=== PATIENT | male | born 1985 | race Caucasian/White ===

== ENCOUNTER → 2024-11-17 | Outpatient (CLI) | payer OTHER, SELFPAY ==
--- NOTE | 2024-11-17 16:41 | RAD_ITS ---
PROCEDURE: SHOULDER MIN 2 VIEWS 11/17/2024 REASON FOR EXAM: LEFT SHOULDER PAIN TECHNIQUE: Four views of the left shoulder COMPARISON: None available FINDINGS: No fracture or dislocation. Suggestion of possible subcortical cyst formation of the humeral head possible rotator cuff tendinopathy. The joint spaces appear within limits. RAD/Shoulder min 2 Views IMPRESSION: No fracture or dislocation. Suggestion of possible subcortical cyst formation of the humeral head possible rotator cuff tendinopathy. Reading Location: [id number]
--- NOTE | 2024-11-17 16:41 | RAD_ITS ---
EXAM: Foot minimum three views CLINICAL HISTORY: Chronic pain COMPARISON: None available TECHNIQUE: Three views left foot FINDINGS: No fracture or dislocation. The joint spaces appear within limits. No osseous lesion identified. [id number] enthesophyte at the Achilles surface and small at the plantar surface of the calcaneus. RAD/Foot min 3 Views IMPRESSION: Enthesophyte formation at the calcaneus as above. Reading Location: [id number]
== END | disposition home or self-care (01) ==
LOC: MTRAD 16:40
PROVIDERS: PCP Family Medicine; Referring Provider Family Medicine; Visit Provider Family Medicine
DX: M25.512 Pain in left shoulder (principal)
CPT/HCPCS: 73030; 73630

== ENCOUNTER → 2024-11-18 | Outpatient (CLI) | payer OTHER, SELFPAY ==
[2024-11-18 17:56] LABS: Absolute Lymphocyte Count 1.82 X10^3/uL (0.83-4.51); Absolute Neutrophil Count 6.5 X10^3/uL (2.0-7.7); Basophil# 0.07 X10^3/uL; Basophil% 0.8 % (0-1); Eosinophil# 0.17 X10^3/uL; Eosinophils% 1.9 % (0-5); Hematocrit 43.3 % (40-54); Lymphocyte # 1.82 X10^3/ul (0.83-4.51); Mean Corp Hgb Conc 34.6 g/dL (32-36); Mean Corpuscular Hgb 29.5 pg (27.0-32.0); Mean Corpuscular Volume 85.2 fL (80-94); Mean Platelet Vol. 10.3 fl (6.2-12.0); Monocyte# 0.52 X10^3/uL; Monocyte% 5.7 % (0-10); NRBC Flagged by Analyzer 0 % (0-5); Neutrophil % 71.4 % (47-70); Platelet Count 261 K/mm3 (150-450); RBC Distribution Width CV 12.4 % (11.6-14.6); RBC Distribution Width SD 38.5 fl (35.1-43.9); Red Blood Count 5.08 M/mm3 (4.6-6.2); White Blood Count 9.1 K/mm3 (4.4-11.0)
[2024-11-18 19:32] LABS: Cholesterol 242 mg/dL (<=200); High Density Lipoprotein 46 mg/dL; Low Density Lipoprotein Calc. 169 mg/dL; Triglycerides 133 mg/dL; Very Low Density Lipoprotein 27 mg/dL (5-40); cholesterol:hdl ratio screen 5.22
[2024-11-18 19:43] LABS: ALB/GLOB Ratio 1.2 RATIO (0.9-2.4); AST(SGOT) 43 U/L (<=37); Alanine Aminotransfer ALT/SGPT 76 U/L (<=46); Albumin, Serum 4.4 g/dL (3.5-5.0); Anion Gap 15 (5-15); BUN 11 mg/dL (4-19); BUN/Creat Ratio 12.2 RATIO (10-20); Calcium,Total 9.6 mg/dL (7.6-11.0); Carbon Dioxide 20.1 mmol/L (21.0-32.0); Chloride 104 mmol/L (98-108); Creatinine, Serum 0.91 mg/dL (0.70-1.20); EST Glomerular Filtration Rate 109 (>60); Globulin 3.6 g/dL (2.2-4.2); Glucose 81 mg/dL (70-99); Potassium 3.8 mmol/L (3.3-5.1); Sodium Level 139 mmol/L (133-145); Total Bilirubin 1.34 mg/dL (0.00-1.30)
[2024-11-18 19:55] LABS: Alkaline Phosphatase 96 U/L (40-129)
== END | disposition home or self-care (01) ==
PROVIDERS: PCP Family Medicine; Referring Provider Family Medicine; Visit Provider Family Medicine
DX: R53.83 Other fatigue (principal); Z13.220 Encounter for screening for lipoid disorders; Z13.1 Encounter for screening for diabetes mellitus
CPT/HCPCS: 36415; 80053; 80061; 82306; 84443; 85025

== ENCOUNTER 2024-12-21 17:00 | Outpatient (RCR) | payer OTHER, SELFPAY ==
--- NOTE | 2024-12-03 18:36 | HP.PTEVAL_ITS ---
Patient's Visit Information Visit Information Visit Information: SUNDEEP MARIE is a 39 year old M referred to Physical Therapy by Dr. Darwin Knowles MD with a diagnosis of LEFT SHOULDER PAIN. Date of Evaluation: 12/03/24 Physical Therapist: Foster Wang PT, Cert MDT, OCS Visit Plan Frequency: 1x/Week Duration: 4 Weeks Plan: PT INTERVENTIONS POSTURAL EX'S ,RTC/SCAPULAR STRENGTHENING ,ROM ,AND MODALITIES FOR PAIN Subjective Subjective: This 39 y/o male presents to physical therapy with left shoulder pain. Patient has had left shoulder ~ 10 years with pain worse over time. Patient seen DR Knowles who referred by DR Wellington. Patient had x-rays possible subcortical cyst formation of the humeral head possible rotator cuff tendinopathy. No cortisone injection and no medication. Dr recommended MRI in January. Patient located global down posterior arm. Aggravating factors OH activities especially lifting something heavy ,moving to side. Pain affects job demands and housework. Alleviating tylenol. Patient pain affects sleeping. Patient has paresthesia/tingling at night. Patient pain affects QOL and job demands/housework tasks. Patient goals to decrease pain with job demands. SOCIAL: SINGLE VOCATION: [employer] Pain Left Shoulder: Pain Intensity (Out of 10): 7 Pain Intensity Range: 10 Objective Objective: POSTURE: mild forward posture NEURO: denies paresthesia/tingling except at night with hand PALPATION: anterior shoulder acromion AROM: shoulder flexion 140 degrees pain ,abduction 140 degrees in pain , ER 90 degrees ,IR T11 PROM: shoulder flexion/abduction 160 degrees CAPSULAR RESTRICTION: mild tight MMT: ( peak force) infraspinatus 15.9 ,subscapularis 19.9 ,deltoid 20.1 ,supraspinatus 16.1 SCAPULAR HUMERAL FUNCTION: 1: 1 Special Tests C/S Radiculapathy - Left Upper limb tension test: Negative C/S Radiculapathy - Right Upper limb tension test: Negative C/S Radiculapathy - Left Spurlings: Negative C/S Radiculapathy - Right Spurlings: Negative C/S Radiculapathy - Left Cervical distraction: Negative C/S Radiculapathy - Right Cervical distraction: Negative L Shoulder External Rotation Lag Test - RC Tear: Negative L Shoulder Lift Off Test - Subscapular Tear: Negative L Shoulder Empty Can - SS: Positive L Shoulder Belly Press - SupScap: Negative L Shoulder Neer - Impingement: Positive L Shoulder [place] - Impingement: Positive L Shoulder Biceps Load Test - Labrum: Negative L Shoulder [place] - SLAP/A-C: Negative Balance/Special Test Scores Quick DASH Score: 38.6350 Goals Goal 1:: Patient to be I with HEP for shoulder Goal Time Frame: 4-6 Weeks Goal 2:: Patient to demonstrate 50 % improvement with less pain and improved fun ction Goal Time Frame: 4-6 Weeks Goal 3:: Patient to improve AROM shoulder flexion/abduction 150 degrees with no pain with lifting OH Goal Time Frame: 4-6 Weeks Goal 4:: Patient to improve peak force strength RTC/deltoid 5# to improve ADLS and OH activities Goal Time Frame: 4-6 Weeks Goal 5:: Patient to improve improve quick dash by 5 points to improve QOL Goal Time Frame: 4-6 Weeks Rehabilitation Potential Physical Therapy Diagnosis: This patient has left shoulder pain with impingement signs with RTC and tendinopathy with decrease ROM ,weakness with OH activities and lifting thus benefit from skilled PT Rehabilitation Potential: Good Anticipated Interventions Patient/Client Instruction: Educate patient on: Condition and Plan of Care For the Purpose of:: To decrease pain, To increase ROM, To improve muscle performance and motor function, To improve ability to perform ADL's, To increase tolerance to activity/condition/position, To improve ability of physical actions for home/community/work/leisure, To improve health of tissue, To decrease soft tissue restriction, To increase flexibility/ROM, To prevent re-injury and To improve tolerance to ADL's Therapeutic Exercise to Include: Strength training, Postural training, Flexibilty training, Passive ROM, Active ROM and Scapular Strength/Stabilization Comment: RTC For the Purpose of:: To decrease pain, To decrease swelling/inflammation, To improve muscle performance and motor function, To improve ability to perform ADL's, To increase tolerance to activity/condition/position, To improve ability of physical actions for home/community/work/leisure, To improve health of tissue, To decrease soft tissue restriction, To increase flexibility/ROM, To reduce risk of recurrence, To prevent re-injury and To improve tolerance to ADL's TENS: Yes IF ES: Yes Cryotherapy (ice pack, ice massage): Yes Thermo therapy (hot pack): Yes Ultrasound (thermal/non thermal): Yes For the Purpose of:: To decrease pain, To increase ROM, To improve nutrient delivery to tissue, To increase oxygenation perfusion, To improve health of tissue and To decrease soft tissue restriction Text: Thank you for the opportunity to evaluate your patient. For Medicare and Medicare HMO plans, please review the plan of care and approve it. It will need to be FAXED BACK to us at [phone] for Medicare purposes. For Medicare only, by signing this I certify the plan of care. Please let me know if there are questions or concerns regarding this plan of care. Physician Signature: Date:
--- NOTE | 2024-12-10 18:12 | HP.PTEVAL2 ---
Patient's Visit Information Visit Information Visit Information: SUNDEEP MARIE is a 39 year old M referred to Physical Therapy by Dr. Darwin Knowles MD with a diagnosis of ACHILLES TENDONITIS LEFT FOOT. Date of Evaluation: 12/10/24 Physical Therapist: Foster Wang PT, Cert MDT, OCS Visit Plan Frequency: 2x /Week Duration: 4 Weeks Plan: PT INTERVENTION'S FLEXABILITY CALF ,MANUAL THERAPY STM /HAWK TOOLS ACHILLES ,US , AND GRADED ECCENTRIC STRENGTHENING ACHILLES Subjective Subjective: This 39 y/o male presents to physical therapy with left achilles tendonitis . Patient has had achilles pain for 10 years. Patient working swinging barrel hit back of heel. Then running in yard felt a sharp pain . Patient seen [facility] in boot which patient declined and surgery due Grady deformity and spur. Seen Dr Barrett recommend PT shock wave therapy. Patient had x-rays showed Enthesophyte formation at the calcaneus . Patient pain located at deltoid tuberosity. Aggravating factors walking ,stairs. Alleviating factors rest. Denies paresthesia/tingling . Pain described as ache occasional sharp pain. Patient condition affects job demands and ADL. Patient goals to decrease pain. VOCATION: [employer] SOCIAL: single Pain Left: Intensity: 5 Left Ankle: Intensity: 5 Pain Intensity Range: 10 Objective Objective: POSTURE: slight pes planus PALAPTION: tender insertion of achilles tendon deltoid tuberosity NEURO: denies paresthesia/tingling GAIT: reciprocal pattern AROM: dorsiflexion 5 degrees ,plantar flexion 65 degrees ,eversion 5 degrees ,inversion 40 degrees MMT: ankle stabilizers 4/5 no pain except calf raises FLEXABILITY: G-S mild tight Goals Goal 1:: I with HEP for ankle tendontis Goal Time Frame: 4-6 Weeks Goal 2:: This patient to improve function with less pain with gait by 50% Goal Time Frame: 4-6 Weeks Goal 3:: Patient will perform eccentrics w/o pain to remodel tissue for gait Goal Time Frame: 4-6 Weeks Goal 4:: Patient to improve LFES score by 5 points to improve QOL and function Goal Time Frame: 4-6 Weeks Rehabilitation Potential Physical Therapy Diagnosis: This patient has left achilles tendinopathy with apparent spur causing pain with function activities walking affecting job demands and housEwork tasks thus benefit from skilled PT Rehabilitation Potential: Good Anticipated Interventions Patient/Client Instruction: Educate patient on: Condition and Plan of Care For the Purpose of:: To decrease pain, To increase ROM, To improve nutrient delivery to tissue, To increase oxygenation perfusion, To improve muscle performance and motor function, To improve ability to perform ADL's, To increase tolerance to activity/condition/position, To improve ability of physical actions for home/community/work/leisure, To improve gait and locomotor functions, To improve health of tissue, To decrease soft tissue restriction, To increase flexibility/ROM and To reduce risk of recurrence Therapeutic Exercise to Include: Strength training, Flexibilty training, Passive ROM and Active ROM For the Purpose of:: To decrease pain, To increase ROM, To improve muscle performance and motor function, To improve ability to perform ADL's, To increase tolerance to activity/condition/position, To improve ability of physical actions for home/community/work/leisure, To improve gait and locomotor functions, To improve health of tissue, To decrease soft tissue restriction, To increase flexibility/ROM, To reduce risk of recurrence, To prevent re-injury and To improve tolerance to ADL's Manual Therapy Techniques to Include: Mobilization, Passive ROM and Soft tissue mobilization For the Purpose of:: To decrease pain, To increase ROM, To improve nutrient delivery to tissue, To increase oxygenation perfusion, To improve muscle performance and motor function, To improve health of tissue, To decrease soft tissue restriction and To increase flexibility/ROM TENS: Yes IF ES: Yes Cryotherapy (ice pack, ice massage): Yes Thermo therapy (hot pack): Yes Ultrasound (thermal/non thermal): Yes For the Purpose of:: To increase ROM, To improve nutrient delivery to tissue, To increase oxygenation perfusion, To improve health of tissue and To decrease soft tissue restriction text: Thank you for the opportunity to evaluate your patient. For Medicare and Medicare HMO plans, please review the plan of care and approve it. It will need to be FAXED BACK to us at [phone] for Medicare purposes. For Medicare only, by signing this I certify the plan of care. Please let me know if there are questions or concerns regarding this plan of care. Physician Signature: Date:
--- NOTE | 2025-04-21 08:25 | HP.PTDCSUM ---
Discharge Summary D/C summary: It has been my pleasure to treat SUNDEEP MARIE referred by Dr. Darwin Knowles MD, with the diagnosis of LEFT SHOULDER PAIN for a total of 5 visit(s). Discharge Date: Please see the following information for a summary of their discharge status. Subjective Subjective: Pain about same ,planning for MRI I will do ex's on own Pain Left Shoulder: Pain Intensity (Out of 10): 3 Objective Objective/Function: DISCUSSED WITH PATIENT CONTINUE WITH SHOULDER EX'S AND REASON EX'S AND ANATOMY POSTURE: mild forward posture NEURO: denies paresthesia/tingling except at night with hand PALPATION: anterior shoulder acromion AROM: shoulder flexion 140 degrees pain ,abduction 140 degrees in pain , ER 90 degrees ,IR T11 PROM: shoulder flexion/abduction 160 degrees CAPSULAR RESTRICTION: mild tight MMT: ( peak force) infraspinatus 15.9 ,subscapularis 19.9 ,deltoid 20.1 ,supraspinatus 16.1 SCAPULAR HUMERAL FUNCTION: 1: 1 Goals Goal 1:: Patient to be I with HEP for shoulder Goal 2:: Patient to demonstrate 50 % improvement with less pain and improved function Goal 3:: Patient to improve AROM shoulder flexion/abduction 150 degrees with no pain with lifting OH Goal 4:: Patient to improve peak force strength RTC/deltoid 5# to improve ADLS and OH activities Goal 5:: Patient to improve improve quick dash by 5 points to improve QOL Plan Plan: WAITING FOR MRI D/C Information d/c sentence: If there are questions or concerns regarding this patient's physical therapy, please feel free to call me at [phone]. Thank you for the referral of this patient. Sincerely, Foster Wang, PT, Cert MDT, OCS Balance/Gait/Functional tests Balance/Special Test Scores Lower Extremity Functional Score: 48 Quick DASH Score: 38.6350
--- NOTE | 2025-04-21 08:27 | HP.PTNR(2)_ITS ---
Patient Information Patient Information: SUNDEEP MARIE was seen in my office for initial evaluation on 12/10/24. The following Plan of Care was established for this patient: POC Established Initial Frequency: 2x /Week Initial Duration: 4 Weeks Plan from Re-Evaluation: PT INTERVENTION'S FLEXABILITY CALF ,MANUAL THERAPY STM /HAWK TOOLS ACHILLES ,US , AND GRADED ECCENTRIC STRENGTHENING ACHILLES Anticipated Interventions Patient/Client Instruction: Educate patient on: Condition and Plan of Care For the Purpose of:: To decrease pain, To increase ROM, To improve nutrient delivery to tissue, To increase oxygenation perfusion, To improve muscle performance and motor function, To improve ability to perform ADL's, To increase tolerance to activity/condition/position, To improve ability of physical actions for home/community/work/leisure, To improve gait and locomotor functions, To improve health of tissue, To decrease soft tissue restriction, To increase flexibility/ROM and To reduce risk of recurrence Therapeutic Exercise to Include: Strength training, Flexibilty training, Passive ROM and Active ROM For the Purpose of:: To decrease pain, To increase ROM, To improve muscle performance and motor function, To improve ability to perform ADL's, To increase tolerance to activity/condition/position, To improve ability of physical actions for home/community/work/leisure, To improve gait and locomotor functions, To improve health of tissue, To decrease soft tissue restriction, To increase f lexibility/ROM, To reduce risk of recurrence, To prevent re-injury and To improve tolerance to ADL's Manual Therapy Techniques to Include: Mobilization, Passive ROM and Soft tissue mobilization For the Purpose of:: To decrease pain, To increase ROM, To improve nutrient delivery to tissue, To increase oxygenation perfusion, To improve muscle performance and motor function, To improve health of tissue, To decrease soft tissue restriction and To increase flexibility/ROM TENS: Yes IF ES: Yes Cryotherapy (ice pack, ice massage): Yes Thermo therapy (hot pack): Yes Ultrasound (thermal/non thermal): Yes For the Purpose of:: To increase ROM, To improve nutrient delivery to tissue, To increase oxygenation perfusion, To improve health of tissue and To decrease soft tissue restriction Last Seen Last Seen: This patient was last seen in our office . Pertinent comments regarding their Physical therapy will appear below: This patient was seen for PT for achilles tendonitis and d/c to HEP At this point I will be discontinuing this patient from physical therapy. I would be happy to see this patient again in the future if found appropriate by the physician. Thank you! Foster Wang, PT, Cert MDT, OCS
== END 2024-12-21 19:00 | disposition home or self-care (01) ==
LOC: PT 17:00
PROVIDERS: PCP Family Medicine; Referring Provider Orthopaedic Surgery Sports Medicine; Visit Provider Orthopaedic Surgery Sports Medicine
DX: M25.512 Pain in left shoulder (principal)
CPT/HCPCS: 97035; 97110; 97140; 97162; 97530